=== PATIENT | female | born 2000 | race Hispanic/Latino ===

== ENCOUNTER 2021-09-03 18:58 | Emergency (ER) | payer MEDICAID | END 2021-09-03 20:56 | disposition home or self-care (01) | LOC: CSHERS 18:58 | DX: L05.01 Pilonidal cyst with abscess (principal) | CPT/HCPCS: 99283 ==

== ENCOUNTER 2021-11-01 08:51 | Emergency (ER) | payer MEDICAID ==
[2021-11-01 09:55] LABS: Bilirubin Neg (Negative); Blood, Urine 250 (Negative); Clarity Cloudy (Clear); Glucose, Urine (Dipstick) Normal (Negative); Ketone, Urine Negative (Negative); Leukocyte 500 (Negative); Nitrite Positive (Negative); Protein, Urine (Dipstick) 100 mg/dl (Neg-Trace); Specific Gravity, Urine 1.025 (1.002-1.036); Urobilinogen Normal mg/dL (Less than 2)
[2021-11-01 09:58] LABS: Pregnancy Test - Urine (BHCG) Negative (Negative); Pregu Control Background? CLEAR/WHITE (CLR/WHITE); Pregu Control Bar Appear? YES (CONTROL BAR); Specific Gravity 1.025 (1.002-1.036)
[2021-11-01 10:04] LABS: Bacteria/HPF 2+ HPF (None Seen); WBC/HPF Greater Than 50 HPF (0-3)
[2021-11-01] MEDS ORDERED: Cephalexin 250 MG CAP ONE (10:14)
== END 2021-11-01 10:23 | disposition home or self-care (01) ==
LOC: CSHERS 08:51
DX: N39.0 Urinary tract infection, site not specified (principal)
CPT/HCPCS: 81003; 81015; 81025; 99284

== ENCOUNTER 2021-11-08 18:06 | Emergency (ER) | payer MEDICAID ==
[2021-11-08] MEDS ORDERED: Lidocaine/Transparent Dressing 1 EACH KIT ONE (20:56)
[2021-11-08] MEDS ORDERED: Sterile Water 10 ML ONE (22:20)
[2021-11-08] MEDS ORDERED: cefTRIAXone\\ROCEPHIN 500 MG VIAL ONE (22:20)
[2021-11-09 11:49] LABS: Chlamydia by PCR Not Detected (NotDetected); GC by PCR Not Detected (NotDetected)
== END 2021-11-08 23:09 | disposition home or self-care (01) ==
LOC: CSHERS 18:06
DX: N76.0 Acute vaginitis (principal)
CPT/HCPCS: 87480; 87491; 87510; 87591; 87660; 96372; 99283; J0696

== ENCOUNTER 2021-11-12 14:14 | Emergency (ER) | payer MEDICAID ==
[2021-11-12] MEDS ORDERED: Acetaminophen 500 MG TAB ONE (15:09)
[2021-11-12] MEDS ORDERED: Ketorolac Tromethamine 30 MG/ML VIAL ONE (15:10)
== END 2021-11-12 16:17 | disposition home or self-care (01) ==
LOC: CSHERS 14:14
DX: B34.9 Viral infection, unspecified (principal); N76.0 Acute vaginitis; K13.70 Unspecified lesions of oral mucosa; Z20.822 Contact with and (suspected) exposure to COVID-19
CPT/HCPCS: 87804; 96372; 99283; J1885; U0003; U0005

== ENCOUNTER 2022-07-06 20:19 | Emergency (ER) | payer MEDICAID, OTHER ==
[2022-07-06] MEDS ORDERED: Ketorolac Tromethamine 30 MG/ML VIAL ONE (23:12)
[2022-07-06] MEDS ORDERED: Ondansetron PF 4 MG/2 ML Vial ONE (23:12)
[2022-07-06 23:43] LABS: #Basophils 0.1 10x3/uL (0.0-0.2); #Monocytes 1.3 10x3/uL (0.0-1.1); #Neutrophils 15.3 10x3/uL (1.5-8.4); %Basophils 0.5 % (0.0-2.0); %Eosinophils 0.1 % (0.0-6.0); %Lymphocytes 13.7 % (18.0-47.0); %Monocytes 6.6 % (0.0-10.0); %Neutrophils 78.7 % (40.0-75.0); Hemoglobin 13.5 g/dL (12.0-15.5); Mean Corpuscular HGB CONC 32.5 g/dL (32.0-36.0); Mean Corpuscular Hemoglobin 26.2 pg (27.0-33.0); Mean Corpuscular Volume 80.4 fl (81.6-98.3); Mean Platelet Volume 8.8 fl (7.4-10.4); Platelet Count 373 10x3/uL (150-450); RBC Distribution Width 15.5 % (11.5-14.5); Red Blood Cell (RBC) Count 5.16 10x6/uL (3.90-5.03); White Blood Cell (WBC) Count 19.5 10x3/uL (3.5-10.5)
[2022-07-06 23:52] LABS: BHCG - Serum Negative (NEGATIVE); MONO NEGATIVE CONTROL ZONE White (Negative) (White); MONO POSITIVE CONTROL Pink Line (Positive) (PINK/RED); Mononucleosis NEGATIVE (NEGATIVE); Pregs Control Background? CLEAR/WHITE (CLR/WHITE); Pregs Control Bar Appear? YES (CONTROL BAR)
[2022-07-06 23:58] LABS: ALT (SGPT) 14 U/L (8-55); AST (SGOT) 18 U/L (5-34); Albumin 4.7 g/dL (3.5-5.0); Alkaline Phosphatase 110 U/L (40-110); Anion Gap 16 mmol/L (10-20); BUN (Urea Nitrogen) 11 mg/dL (7.0-18.7); Bilirubin, Total 0.4 mg/dL (0.2-1.2); Calc. Creatinine Clearance 0 mL/min (70-130); Calcium 9.6 mg/dL (7.8-10.44); Carbon Dioxide 25 mmol/L (22-29); Chloride 102 mmol/L (98-107); Estimated GFR 102; Globulin 3.9 g/dL (2.4-3.5); Glucose 90 mg/dL (70-105); Potassium 3.5 mmol/L (3.5-5.1); Protein, Total 8.6 g/dL (6.0-8.3); Sodium 139 mmol/L (136-145)
[2022-07-07 00:16] LABS: SARS-CoV-2 NAA Rapid Test Not Detected (NotDetected)
[2022-07-07] MEDS ORDERED: cefTRIAXone (ROCEPHIN) 1 GM VIAL ONE (00:46)
[2022-07-07] MEDS ORDERED: Acetaminophen 500 MG TAB ONE (01:34)
[2022-07-07] MEDS ORDERED: Dexamethasone 4 MG TAB ONE (01:35)
== END 2022-07-07 01:51 | disposition home or self-care (01) ==
LOC: CSHERS 20:19
DX: J02.9 Acute pharyngitis, unspecified (principal); Z20.822 Contact with and (suspected) exposure to COVID-19
CPT/HCPCS: 80053; 83605; 84703; 85025; 86308; 87081; 87430; 96374; 96375; J0696; J1885; J2405; J8540

== ENCOUNTER 2022-10-03 21:18 | Emergency (ER) | payer OTHER ==
[~2022-10-03 21:18] MED LIST: Iopamidol 300 61% 100 ML VIAL FS ONE
[2022-10-03 21:54] LABS: #Basophils 0.1 10x3/uL (0.0-0.2); #Eosinphils 0.4 10x3/uL (0.0-0.5); #Monocytes 0.6 10x3/uL (0.0-1.1); %Basophils 0.6 % (0.0-2.0); %Eosinophils 4.8 % (0.0-6.0); %Lymphocytes 30.7 % (18.0-47.0); %Monocytes 6.7 % (0.0-10.0); %Neutrophils 56.9 % (40.0-75.0); Hemoglobin 12.3 g/dL (12.0-15.5); Mean Corpuscular HGB CONC 32.2 g/dL (32.0-36.0); Mean Corpuscular Hemoglobin 26.5 pg (27.0-33.0); Mean Corpuscular Volume 82.2 fl (81.6-98.3); Mean Platelet Volume 8.9 fl (7.4-10.4); Platelet Count 384 10x3/uL (150-450); RBC Distribution Width 15.2 % (11.5-14.5); Red Blood Cell (RBC) Count 4.65 10x6/uL (3.90-5.03); White Blood Cell (WBC) Count 8.8 10x3/uL (3.5-10.5)
[2022-10-03 21:56] LABS: BHCG - Serum Negative (NEGATIVE); Pregs Control Background? CLEAR/WHITE (CLR/WHITE); Pregs Control Bar Appear? YES (CONTROL BAR)
[2022-10-03 22:03] LABS: ALT (SGPT) 16 U/L (8-55); AST (SGOT) 18 U/L (5-34); Albumin 4.3 g/dL (3.5-5.0); Alkaline Phosphatase 104 U/L (40-110); Anion Gap 14 mmol/L (10-20); BUN (Urea Nitrogen) 9 mg/dL (7.0-18.7); Bilirubin, Total 0.2 mg/dL (0.2-1.2); Calc. Creatinine Clearance 0 mL/min (70-130); Calcium 9.1 mg/dL (7.8-10.44); Carbon Dioxide 26 mmol/L (22-29); Chloride 105 mmol/L (98-107); Estimated GFR 117; Globulin 3.1 g/dL (2.4-3.5); Glucose 108 mg/dL (70-105); Lipase 45 U/L (8-78); Potassium 4.1 mmol/L (3.5-5.1); Protein, Total 7.4 g/dL (6.0-8.3); Sodium 141 mmol/L (136-145)
== END 2022-10-03 23:07 | disposition home or self-care (01) ==
LOC: CSHERS 21:18
DX: B71.9 Cestode infection, unspecified (principal); R10.84 Generalized abdominal pain
CPT/HCPCS: 74177; 80053; 83690; 84703; 85025; Q9967

== ENCOUNTER 2022-12-08 15:48 | Emergency (ER) | payer BC, OTHER ==
[2022-12-08 16:51] LABS: Bilirubin Neg (Negative); Blood, Urine 50 (Negative); Clarity Clear (Clear); Glucose, Urine (Dipstick) Normal (Negative); Ketone, Urine Negative (Negative); Leukocyte 25 (Negative); Nitrite Negative (Negative); Protein, Urine (Dipstick) Negative (Neg-Trace); Specific Gravity, Urine 1.015 (1.005-1.030); Urobilinogen Normal mg/dL (Less than 2)
[2022-12-08 16:53] LABS: #Eosinphils 0.5 10x3/uL (0.0-0.5); #Monocytes 0.6 10x3/uL (0.0-1.1); #Neutrophils 7.4 10x3/uL (1.5-8.4); %Basophils 0.4 % (0.0-2.0); %Eosinophils 4.2 % (0.0-6.0); %Lymphocytes 19.7 % (18.0-47.0); %Monocytes 5.7 % (0.0-10.0); %Neutrophils 69.7 % (40.0-75.0); Hematocrit 39.2 % (34.9-44.5); Hemoglobin 12.7 g/dL (12.0-15.5); Mean Corpuscular HGB CONC 32.4 g/dL (32.0-36.0); Mean Corpuscular Hemoglobin 26.2 pg (27.0-33.0); Mean Corpuscular Volume 80.8 fl (81.6-98.3); Mean Platelet Volume 8.8 fl (7.4-10.4); Platelet Count 396 10x3/uL (150-450); Red Blood Cell (RBC) Count 4.85 10x6/uL (3.90-5.03); White Blood Cell (WBC) Count 10.7 10x3/uL (3.5-10.5)
[2022-12-08] MEDS ORDERED: Ondansetron PF 4 MG/2 ML Vial ONE (16:55)
[2022-12-08 17:04] LABS: ALT (SGPT) 13 U/L (8-55); AST (SGOT) 14 U/L (5-34); Albumin 4.3 g/dL (3.5-5.0); Alkaline Phosphatase 82 U/L (40-110); Anion Gap 14 mmol/L (10-20); BUN (Urea Nitrogen) 7 mg/dL (7.0-18.7); Bilirubin, Total 0.3 mg/dL (0.2-1.2); Calc. Creatinine Clearance 0 mL/min (70-130); Calcium 9.4 mg/dL (7.8-10.44); Carbon Dioxide 24 mmol/L (22-29); Chloride 104 mmol/L (98-107); Estimated GFR 125; Globulin 3.4 g/dL (2.4-3.5); Glucose 94 mg/dL (70-105); Lipase 26 U/L (8-78); Potassium 3.7 mmol/L (3.5-5.1); Protein, Total 7.7 g/dL (6.0-8.3); Sodium 138 mmol/L (136-145)
[2022-12-08 17:09] LABS: Bacteria/HPF 3+ HPF (None Seen); CAUTI Indications for Culture Dysuria,urgency,freq; RBC/HPF 0-3 HPF (0-3); WBC/HPF 0-3 HPF (0-3)
[2022-12-08 17:10] LABS: Mucous/LPF 2+ LPF (<2+); Urine Culture Reflex No No
== END 2022-12-08 19:26 | disposition home or self-care (01) ==
LOC: CSHERS 15:48
DX: O99.891 Other specified diseases and conditions complicating pregnancy (principal); R10.30 Lower abdominal pain, unspecified; O21.9 Vomiting of pregnancy, unspecified; Z3A.01 Less than 8 weeks gestation of pregnancy
CPT/HCPCS: 36415; 76856; 80053; 81001; 83690; 84702; 85025; 86900; 86901; 87086; J2405

== ENCOUNTER 2023-01-16 19:20 | Emergency (ER) | payer BC, OTHER ==
[2023-01-16 20:24] LABS: Bilirubin Neg (Negative); Blood, Urine Negative (Negative); Glucose, Urine (Dipstick) Normal (Negative); Ketone, Urine Negative (Negative); Leukocyte 25 (Negative); Nitrite Negative (Negative); Protein, Urine (Dipstick) Negative (Neg-Trace); Urobilinogen Normal mg/dL (Less than 2)
[2023-01-16] MEDS ORDERED: cefTRIAXone (ROCEPHIN) 1 GM VIAL ONE (20:27)
[2023-01-16 20:36] LABS: Clarity Slightly Cloudy (Clear)
[2023-01-16 20:42] LABS: Bacteria/HPF 2+ HPF (None Seen); CAUTI Indications for Culture Pelvic or flank pain; RBC/HPF None Seen HPF (0-3); WBC/HPF 0-3 HPF (0-3)
[2023-01-16 20:43] LABS: Urine Culture Reflex No No
[2023-01-16 20:50] LABS: #Basophils 0.1 10x3/uL (0.0-0.2); #Eosinphils 0.3 10x3/uL (0.0-0.5); #Monocytes 0.8 10x3/uL (0.0-1.1); #Neutrophils 8.5 10x3/uL (1.5-8.4); %Basophils 0.4 % (0.0-2.0); %Eosinophils 2.8 % (0.0-6.0); %Lymphocytes 21.4 % (18.0-47.0); %Monocytes 6.2 % (0.0-10.0); Hematocrit 35.4 % (34.9-44.5); Hemoglobin 11.5 g/dL (12.0-15.5); Mean Corpuscular HGB CONC 32.5 g/dL (32.0-36.0); Mean Corpuscular Hemoglobin 26.1 pg (27.0-33.0); Mean Corpuscular Volume 80.3 fl (81.6-98.3); Mean Platelet Volume 8.7 fl (7.4-10.4); Platelet Count 337 10x3/uL (150-450); RBC Distribution Width 14.5 % (11.5-14.5); Red Blood Cell (RBC) Count 4.41 10x6/uL (3.90-5.03); White Blood Cell (WBC) Count 12.3 10x3/uL (3.5-10.5)
[2023-01-16 21:02] LABS: ALT (SGPT) 11 U/L (8-55); AST (SGOT) 13 U/L (5-34); Albumin 3.6 g/dL (3.5-5.0); Alkaline Phosphatase 80 U/L (40-110); Anion Gap 13 mmol/L (10-20); BUN (Urea Nitrogen) 7 mg/dL (7.0-18.7); Bilirubin, Total 0.2 mg/dL (0.2-1.2); Calc. Creatinine Clearance 0 mL/min (70-130); Calcium 9.2 mg/dL (7.8-10.44); Carbon Dioxide 22 mmol/L (22-29); Chloride 105 mmol/L (98-107); Estimated GFR 126; Globulin 3.2 g/dL (2.4-3.5); Glucose 92 mg/dL (70-105); Potassium 3.5 mmol/L (3.5-5.1); Protein, Total 6.8 g/dL (6.0-8.3); Sodium 136 mmol/L (136-145)
== END 2023-01-16 22:25 | disposition home or self-care (01) ==
LOC: CSHERS 19:20
DX: O23.41 Unspecified infection of urinary tract in pregnancy, first trimester (principal); Z3A.13 13 weeks gestation of pregnancy
CPT/HCPCS: 36415; 76815; 80053; 81001; 84702; 85025; 96374; J0696

== ENCOUNTER 2023-04-02 17:38 | Emergency (ER) | payer BC | END 2023-04-02 18:40 | disposition home or self-care (01) | LOC: CSHERS 17:38 | DX: M26.601 Right temporomandibular joint disorder, unspecified (principal) | CPT/HCPCS: 99283 ==

== ENCOUNTER 2023-05-09 16:57 | Day surgery (SDC) | payer BC, OTHER ==
[2023-05-09 17:16] VITALS: BMI 30.1
[2023-05-09] MEDS ORDERED: Dextrose 5%-Lactated Ringers 1,000 ML IV SCH (17:45)
== END 2023-05-09 18:50 | disposition home or self-care (01) ==
LOC: CSHLD/OP 16:57
PROVIDERS: ATTEND Obstetrics & Gynecology
DX: O36.8130 Decreased fetal movements, third trimester, not applicable or unspecified (principal); O92.29 Other disorders of breast associated with pregnancy and the puerperium; Z3A.29 29 weeks gestation of pregnancy; Z79.899 Other long term (current) drug therapy; Z88.2 Allergy status to sulfonamides; Z88.1 Allergy status to other antibiotic agents
CPT/HCPCS: 76819

== ENCOUNTER 2024-11-27 22:26 | Emergency (ER) | payer BC, OTHER, SELFPAY ==
[2024-11-27] MEDS ORDERED: Acetaminophen 500 MG TAB ONE (22:58)
[2024-11-28] MEDS ORDERED: Ketorolac Tromethamine 30 MG (1 mL) VIAL ONE (01:27)
[2024-11-28 02:05] LABS: Glucose, Urine (Dipstick) Negative (Negative); Leukocyte Trace (Negative); Protein, Urine (Dipstick) 100 mg/dL (Neg-Trace); Specific Gravity, Urine 1.025 (1.005-1.030)
[2024-11-28 02:09] LABS: Bacteria/HPF None Seen HPF (None Seen); CAUTI Indications for Culture Pelvic or flank pain
[2024-11-28 02:11] LABS: Urine Culture Reflex No No
== END 2024-11-28 02:54 | disposition home or self-care (01) ==
LOC: CSHERS 22:26
DX: B34.9 Viral infection, unspecified (principal); R30.0 Dysuria
CPT/HCPCS: 71045; 81001; 87086; 87428; 96372; J1885